=== PATIENT | female | born 1995 | race Caucasian/White ===

== ENCOUNTER 2016-08-21 20:59 | Emergency (ER) | payer MEDICAID, OTHER ==
[~2016-08-21] VITALS: Ht 165.1 cm; Wt 74.8 kg
--- NOTE | 2016-08-21 23:10 | REPUSA ---
CT of the head Clinical history: Headache. Concussion. Technique: Multiple axial CT images were obtained through the head without administration of contrast . Findings: The ventricles and sulci are symmetric bilaterally. There is no evidence of acute hemorrhag e or infarct. There is no midline shift, mass effect, or extra-axial fluid collection. The osseous st ructures are unremarkable. The visualized paranasal sinuses and mastoid air cells are clear. Impression: Negative study.
[2016-08-21] MEDS ORDERED: NAPR500T PO (23:15)
[2016-08-21 23:22] VITALS: BP 122/72
== END 2016-08-21 23:25 | disposition home or self-care (01) ==
LOC: M ED 22:00
DX: S06.0X0A Concussion without loss of consciousness, initial encounter (principal); W01.198A Fall on same level from slipping, tripping and stumbling with subsequent striking against other object, initial encounter; Y92.410 Unspecified street and highway as the place of occurrence of the external cause; Y93.89 Activity, other specified; Y99.9 Unspecified external cause status

== ENCOUNTER 2016-12-21 04:41 | Inpatient (IN) | payer OTHER ==
[~2016-12-21] VITALS: Ht 165.1 cm; Wt 70.1 kg
[~2016-12-21 04:41] MED LIST: NAPR500T PO
[2016-12-21 05:23] LABS: MEAN CORPUSCULAR HEMOGLOBIN 32.5 pg (27.0-33.0); MEAN CORPUSCULAR HGB CONC 34.3 g/dl (32.0-36.5); MEAN CORPUSCULAR VOLUME 94.8 fl (80.0-96.0); RED CELL DISTRIBUTION WIDTH 12.3 % (11.5-14.5); WHITE BLOOD COUNT 9.1 K/mm3 (4.0-10.0)
[2016-12-21] MEDS ORDERED: TETANUS/DIPHTHERIA TOX ADSORB ADULT 0.5ML SYR/VIAL (90714) IM ONE (05:30)
[2016-12-21 05:41] LABS: CONTROL LINE HCG INT CTR LINE PRESENT
[2016-12-21 05:55] LABS: METHADONE URINE NEGATIVE (NEGATIVE)
[2016-12-21 06:04] LABS: ALBUMIN 3.8 GM/DL (3.2-5.2); ALBUMIN/GLOBULIN RATIO 1.19 (1.00-1.93); ALKALINE PHOSPHATASE 47 U/L (45-117); ALT/SGPT 14 U/L (12-78); ANION GAP 10 MEQ/L (8-16); AST/SGOT 10 U/L (15-37); BILIRUBIN,DIRECT 0.1 MG/DL (0.0-0.2); BILIRUBIN,TOTAL 0.4 MG/DL (0.2-1.0); BLOOD UREA NITROGEN 10 MG/DL (7-18); CALCIUM LEVEL 8.7 MG/DL (8.5-10.1); CARBON DIOXIDE LEVEL 24 MEQ/L (21-32); CHLORIDE LEVEL 110 MEQ/L (98-107); CREATININE FOR GFR 0.72 MG/DL (0.55-1.02); GLOMERULAR FILTRATION RATE > 60.0 (>60); GLUCOSE, FASTING 91 MG/DL (70-105); POTASSIUM SERUM 4.1 MEQ/L (3.5-5.1); SODIUM LEVEL 144 MEQ/L (136-145)
--- NOTE | 2016-12-21 08:40 | REP ---
Clinical: Trauma. Technique: AP, lateral, bilateral oblique views right hand . Findings: The osseous structures and joint spaces are intact and normal. There is no evidence for acute fracture or dislocation. Surrounding soft tissues are unremarkable. No subcutaneous emphysema or radiodense foreign body. Impression: Normal right hand series . No acute fracture or dislocation. Signed by Tyrell Garner MD 12/21/2016 08:31 A
[2016-12-21] MEDS ORDERED: ACETAMINOPHEN TAB 650MG DOSE (2X325MG) PO ONE (10:30)
[2016-12-21 11:00] VITALS: BP 119/75
--- NOTE | 2016-12-21 15:54 | MHHPEPDOC ---
[facility] History & Physical History and Physical DATE OF ADMISSION: Dec 21, 2016 at 11:00 LEGAL STATUS AT ADMISSION: . CHIEF COMPLAINT: SI, depression HISTORY OF THE PRESENT ILLNESS: Patient is a 21-year-old female, single, domiciled with mother, brother, BF of mother, post acute care registered nurse job at [employer], PPH self harm in HS & f/u short times, no meds, PMH non significant, BIB EMS friend, for SA with cutting under alcohol. Patient reported that she has been feeling depressed recently and yesterday she had Emotional overload, anger & hit self & others, she got into argument with the friend and she also had drank 5-6 beers, which she does daily for 1-2 months. She reported that she broke one of the beer bottle and cut herself with that glass. She reports that she doesn't remember anything else but she was told that she was aggressive to her friend also. She reports having multiple blackouts in past , thinks alcohol 'mallow' her. cocaine use 1-2 months ago for 1-2 yrs , marijuana- 2days ago 7yrs, twice a week. depression- isolating, less energy, dont want to talk, no motivation, less appetite, loss of about 100lbs from drugs as per the patient, some intentional, wt differently, no drugs for guilt, last night wanted to kill self with cutting , thinking about it for a while, passive SI - for about couple of weeks, mood swings but denies lasting longer than a day of happiness, punched wall yesterday , argument with friend, daily w one friend. nervousness but denies panic attacks. suspicious about people talking about her , which might be connected to her use of drugs. She denies any OCD or PTSD symptoms. She also denies any psychotic symptoms including hallucinations or paranoid ideations. She identifies herself as homosexual and reports being comfortable being lesbian, and being female. PAST PSYCHIATRIC HISTORY: Prior Psychiatric Disorder: Psych evaluation at age of 15yo for anger problems & self harm, no meds, no therapy. ALLERGIES: Please see below. FAMILY PSYCHIATRIC HISTORY: maternal aunt- depression & anxiety, multiple admissions, SIB, Medical- diabetes , returning in the family but denies having diabetes for self SOCIAL HISTORY: lesbian for 4months, currently single, SUBSTANCE ABUSE HISTORY: As described in HPI. PAST MEDICAL/SURGICAL HISTORY: 1. Denies. MENTAL STATUS EXAMINATION: 21yo female sitting in the chair, looks appropriate for the stated age, fair hygiene and grooming, normal psychomotor activities, no abnormal movements, cooperative with limited eye contact, speech is soft normal in rate, rhythm, amount and prosody, mood is sad & nervous, affect constricted and mood congruent , thought process is logical and goal directed, suicidal ideas present and denies homicidal ideations, denies hallucinations, no delusions elicited, aaox3 , fair immediate, short term and terminal worker memory, limited insight, judgement and impulse control DIAGNOSES: 1. Depressive disorder, unspecified, rule out major depression, single episode without psychosis. 2.. Alcohol use disorder. Rule out substance-induced mood disorder. ASSESSMENT: Biologically, having family history of psychiatric illnesses shows patient having genetic loading and can be predisposing factor for the patient having no chronic medical illnesses can be protected to but multiple substance use can be perpetuating and precipitating factor Psychologically, having poor. Defense mechanisms and coping skills can be perpetuating and precipitating factor Socially, having limited social support can be perpetuating factor, but having full-time job can be protective PROBLEM LIST: 1. Depression, suicidal ideations and attempt, but cutting self. 2.. Alcohol use, marijuana and cocaine use. INITIAL TREATMENT PLAN: 1. Patient was admitted on a 9.39 2. Complete history was obtained. 3. With patients permission, family will be contacted and database will be expanded. 4. Patients medication regimen will be reviewed and changed accordingly. 5. Patient will be provided with protected environment. 6. Patient will be treated with individual, group, and milieu therapies. 7. Patient will receive supportive psych-education. 8. Discharge planning will commence immediately. 9. Outpatient follow-up treatment will be strongly recommended. 10. The initial treatment plan will focus initially on: * Depression. * Risk for suicide. * Substance abuse. ESTIMATED LENGTH OF STAY: 5-7 DAYS. TIME SPENT COUNSELING AND COORDINATING INITIAL CARE: 45 minutes. Laboratory Data 24H Labs Laboratory Tests 2 12/21/16 05:11: Anion Gap 10, Glomerular Filtration Rate > 60.0, Calcium Level 8.7, Aspartate Amino Transf (AST/SGOT) 10L, Alanine Aminotransferase (ALT/SGPT) 14, Alkaline Phosphatase 47, Total Bilirubin 0.4, Direct Bilirubin 0.1, Total Protein 7.0, Albumin 3.8, Albumin/Globulin Ratio 1.19, Thyroid Stimulating Hormone (TSH) 1.740, Human Chorionic Gonadotropin, Qual NEGATIVE, Salicylates Level 2.5L, Urine Amphetamines Screen NEGATIVE, Urine Benzodiazepines Screen NEGATIVE, Urine Opiates Screen NEGATIVE, Urine Methadone Screen NEGATIVE, Acetaminophen Level < 2.0L, Urine Barbiturates Screen NEGATIVE, Urine Phencyclidine Screen NEGATIVE, Urine Cocaine Metabolite Screen NEGATIVE, Urine Cannabinoids Screen POSITIVEH, Ethyl Alcohol Level 0.083H CBC/BMP Laboratory Tests 12/21/16 05:11 Red Blood Count 4.26, Mean Corpuscular Volume 94.8, Mean Corpuscular Hemoglobin 32.5, Mean Corpuscular Hemoglobin Concent 34.3, Red Cell Distribution Width 12.3 Medications No Active Prescriptions or Reported Meds Allergies Coded Allergies: Penicillins (Verified Allergy, Unknown, hives, 08/21/16) ESTHER العراقي MD Dec 21, 2016 15:54
[2016-12-21] MEDS ORDERED: MOM 30ML SUSPENSION UDC PO PRN (17:30)
[2016-12-21] MEDS ORDERED: LORazepam 2 MG TAB PO PRN (17:30)
[2016-12-21] MEDS ORDERED: MAALOX 30 ML SUSP *UDC PO PRN (17:30)
[2016-12-21] MEDS ORDERED: THIAMINE 100 MG TAB PO ONE (18:00)
[2016-12-21] MEDS: ESCITALOPRAM OXALATE 5MG TABLET (LEXAPRO) PO SCH (22:27)
[2016-12-22 06:30] VITALS: BP 117/56
[2016-12-22] MEDS: NICOTINE 21MG/24HR 1 EA TRANSDERMAL TD SCH (09:06)
[2016-12-22] MEDS: MULTIVITAMINS/MINERALS THERAP 1 TAB PO SCH (09:06)
[2016-12-22] MEDS: FOLIC ACID 1 MG TAB PO SCH (09:06)
[2016-12-22] MEDS: THIAMINE 100 MG TAB PO SCH ×2 (09:06→22:22)
[2016-12-22] MEDS: ACETAMINOPHEN TAB 650MG DOSE (2X325MG) PO PRN ×2 (09:07→17:44)
[2016-12-22 10:57] VITALS: BP 117/56
--- NOTE | 2016-12-22 16:05 | MHIPNPDOC ---
[facility] [place] DATE OF SERVICE: 12/22/16 HISTORY: Reviewed history with patient, she stated that she was "foggy" on events that occurred leading to her hospitalization and that she remembered drinking then being escorted by police officers. Is aware that she cut herself but does not remember exactly why. Reports having been in an argument with one of her friends shortly before the incident. Her primary stressors involve being left alone by her friends due to changing interests. She denies SI today and reports that she is feeling much better and has enjoyed her time at groups while here. VITAL SIGNS: See below. NEW TEST RESULTS: no new labs CURRENT MEDICATIONS: See below. MENTAL STATUS EXAMINATION: Patient is a 21-year old female, who is dressed in [facility] with good hygiene; calm and cooperative with interview, no psychomotor changes noted Speech: Is fluent; normal rate, tone, volume Thought processes including: logical, goal-oriented, coherent Thought content: denies SI/HI, reiteration of previous history, reports having multiple life stressors Description of associations: intact Description of abnormal or psychotic thoughts: denies AVH, no internal preoccupation noted; no paranoid or delusional thoughts elicited Judgment: fair Insight: poor Orientation: x3 Recent and remote memory: intact Attention span and concentration: intact Mood: "pretty good" Affect: euthymic; full range, congruent to stated mood DIAGNOSES: 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 She does not appear to have enough depressive symptoms to qualify for the diagnosis of MDD, however she may be continuing to minimize as this is her first time meeting this interviewer. Patient has a reported history of self-injurious behavior and admits to feeling lonely and seeking attention. She may benefit from supportive therapy in the outpatient setting, particularly DBT or DDP to challenge her world views. MANAGEMENT PLAN: continue current medications; encourage patient to attend groups; will continue to evaluate patient and obtain collateral as appropriate TIME SPENT: 30 minutes. Vital Signs Vital Signs Date Time Temp Pulse Resp B/P (MAP) Pulse Ox O2 Delivery O2 Flow Rate FiO2 12/22/16 10:57 80 117/56 12/22/16 06:30 97.9 16 12/21/16 10:47 97 12/21/16 04:57 Room Air Current Medications Current Medications Acetaminophen (Tylenol Tab) 650 mg Q4HP PRN PO PAIN Last administered on 09:07; Start 12/21/16 at 17:30; Stop 01/20/17 at 17:29 Al Hydrox/Mg Hydrox/Simethicone (Mylanta) 30 ml Q4HP PRN PO HEARTBURN; Start at 17:30; Stop 01/20/17 at 17:29 Escitalopram Oxalate (Lexapro) 5 mg QHS PO Last administered on 12/21/16 22:27 ; Start 12/21/16 at 21:00; Stop 01/20/17 at 20:59 Folic Acid (Folic Acid) 1 mg DAILY PO Last administered on 12/22/16 09:06; Start 12/22/16 at 09:00; Stop 01/21/17 at 08:59 Home Med (Med Rec Complete!) ASDIRECTED XX ; Start 12/21/16 at 08:15; Stop at 08:15; Status DC Lorazepam (Ativan) 2 mg ASDIRECTED PRN PO SEE PROTOCOL; Start 12/21/16 at 17:30 ; Stop 12/28/16 at 17:29 Magnesium Hydroxide (Milk Of Magnesia) 30 ml DAILYPRN PRN PO CONSTIPATION; Start 12/21/16 at 17:30; Stop 01/20/17 at 17:29 Multivitamins (Theragram-M) 1 tab DAILY PO Last administered on 12/22/16 09:06 ; Start 12/22/16 at 09:00; Stop 01/21/17 at 08:59 Nicotine (Nicoderm Cq 21mg) 1 patch DAILY TD Last administered on 12/22/16 09: 06; Start 12/22/16 at 09:00; Stop 01/21/17 at 08:59 Thiamine HCl (Thiamine HCl) 100 mg BID PO Last administered on 12/22/16 09:06; Start 12/22/16 at 09:00; Stop 12/24/16 at 09:01 Allergies Coded Allergies: Penicillins (Verified Allergy, Unknown, hives, 08/21/16) ELIZABETH JETER MD Dec 22, 2016 16:05
[2016-12-22 18:00] VITALS: BP 134/75
[2016-12-22] MEDS: ESCITALOPRAM OXALATE 5MG TABLET (LEXAPRO) PO SCH (22:22)
[2016-12-22 23:03] VITALS: BP 121/78
[2016-12-22 23:06] VITALS: BP 121/78
[2016-12-23 06:32] VITALS: BP 125/63
[2016-12-23] MEDS: NICOTINE 21MG/24HR 1 EA TRANSDERMAL TD SCH (08:39)
[2016-12-23] MEDS: FOLIC ACID 1 MG TAB PO SCH (08:39)
[2016-12-23] MEDS: MULTIVITAMINS/MINERALS THERAP 1 TAB PO SCH (08:39)
[2016-12-23] MEDS: THIAMINE 100 MG TAB PO SCH (08:39)
[2016-12-23] MEDS ORDERED: NICO21PAT TD (10:02)
[2016-12-23] MEDS ORDERED: LEXA1TAB PO (10:02)
[2016-12-23] MEDS ORDERED: FOLI1TAB4 PO (10:02)
[2016-12-23] MEDS ORDERED: THIA100TA PO (10:02)
[2016-12-23] MEDS ORDERED: VITMTA PO (10:02)
--- NOTE | 2016-12-23 15:19 | MHDSPDOC ---
[facility] Discharge Summary Discharge Summary DATE OF ADMISSION: Dec 21, 2016 at 11:00 DATE OF DISCHARGE: Dec 23, 2016 at 12:15 DISCHARGE DIAGNOSES: 1. 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 Unspecified Mood Disorder, r/o MDD REASON FOR ADMISSION: CHIEF COMPLAINT: SI, depression HISTORY OF THE PRESENT ILLNESS: Patient is a 21-year-old female, single, domiciled with mother, brother, BF of mother, full time staff interpreter job at [email or web address], PPH self harm in HS & f/u short times, no medications, PMH non significant, BIB EMS friend, for SA with cutting under alcohol. Patient reported that she has been feeling depressed recently and yesterday she had Emotional overload, anger & hit self & others, she got into argument with the friend and she also had drank 5-6 beers, which she does daily for 1-2 months. She reported that she broke one of the beer bottle and cut herself with that glass. She reports that she doesn't remember anything else but she was told that she was aggressive to her friend also. She reports having multiple blackouts in past , thinks alcohol 'mellows' her. cocaine use 1-2 months ago for 1-2 yrs , marijuana- 2days ago 7yrs, twice a week. depression- isolating, less energy, don't want to talk, no motivation, less appetite, loss of about 100lbs from drugs as per the patient, some intentional, wt differently, no drugs for guilt, last night wanted to kill self with cutting , thinking about it for a while, passive SI - for about couple of weeks, mood swings but denies lasting longer than a day of happiness, punched wall yesterday , argument with friend, daily w one friend. nervousness but denies panic attacks. suspicious about people talking about her , which might be connected to her use of drugs. She denies any OCD or PTSD symptoms. She also denies any psychotic symptoms including hallucinations or paranoid ideations. She identifies herself as homosexual and reports being comfortable being lesbian, and being female. CONSULTANTS INVOLVED: None TREATMENT AND PROGRESS ON THE UNIT : Patient had a good response to medications , kept a pleasant and cooperative attitude, she did attend groups. Patient was evaluated and she admitted she had a problem with alcohol and that she had used different drugs previously. Recently, she admitted to using alcohol and marijuana, she said she realizes is not good for her to continue to socialize with the friend with whom she got into a fight because whenever they are together, they fight and this has been going on for a while now. She has admitted she feels lonely and at times she feels empty. She has a history of self injurious behavior, that seem to fit the Borderline Personality traits. She doesn't fulfill the criteria for major Depressive Disorder, so, it seems to be that she doesn't have enough coping skills and when she's under stress she punches crenshaw or cuts herself. Substance abuse is a problem for her, she couldn' t remember exactly what had happened prior to her admission, except "bits and pieces", like being in the Police car and then, walking into the ED. Her mother has told [employer] that if patient didn't show up tomorrow at work ([employer]), she would loose her job. Mother said she worries about her because of her alcohol consumption but she felt comfortable by having her back home. Patient received Lexapro 10 mgs. PO QD and Multivitamins 1 cap PO QD, Folic Acid 1 mg. PO QD, Thiamine 100 mgs PO BID and a Nicotine patch 1 applied daily. HOSPITAL COURSE: As above DISCHARGE ASSESSMENT: Patient was not in danger to self or others. Patient was observed around the Unit and she always was calm, pleasant and cooperative. According to staff and social workers she engaged in treatment, attended group and never manifested suicidal or homicidal ideation, did not engage in self injurious behavior and was motivated for treatment. The meeting between her mother, herself and addiction social worker wnet well, her mood and affect were reported as bright and she didn't have any signs of psychosis. MENTAL STATUS EXAMINATION ON DISCHARGE: The patient was not seen by this author at the time of her discharge but she was reported to be happy, with brighter mood and affect, goal oriented, with no suicidal thoughts, not homicidal thoughts and not psychotic by staff members. This senior grant writer intended to meet with the patient but when I looked for her she had already left. Staff members reported her as being stable and TW had seen her previously walking in the hallways, looking happy and stating she felt fine when TW asked her how she felt. Patient is a 21-year old female, who is alert, cooperative, dressed in personal clothes. Speech is coherent Language skills are fair. Thought processes including: Intact. Thought content: coherent. Abstract reasoning, and computation: Fair. Description of associations: Good. Description of abnormal or psychotic thoughts: Not present Judgment: Improved Insight: Improved Orientation to Oriented x 3. Recent and remote memory: Good Attention span and concentration: Fair Language: Normal Fund of knowledge: Fair Mood: Euthymic Affect: Congruent with mood MEDICATIONS ON DISCHARGE: - Lexapro 10 mgs PO QD for anxiety/depression. - Folic acid 1 mg PO QD for alcohol withdrawals. - Multivitamins 1 cap PO QD for alcohol withdrawals -Thiamine 100 mgs. PO BID for alcohol withdrawals - Nicotine patch 1 QD PLAN/FOLLOWUP ARRANGEMENTS: * Mental Health Appt 1 * [facility] * Therapist MALLIKA * Date Dec 25, 2016 * Time 11:00 * Address of Clinic or Practice [address] [place] [address] * * Chemical Dependency Appt1 * Crisis Support 09/11 [facility] * Therapist CHIKIS * Date Dec 24, 2016 * Time 07:30 * Address of Clinic or Practice [address] [place] [address] * * Additional information Wednesday, Wed & 730-1030 & 1230-230 Tuesdays 830-1030 The amount of time spent in the coordination of care for this patient was approximately 20 minutes. Vital Signs/I&Os Vital Signs Date Time Temp Pulse Resp B/P (MAP) Pulse Ox O2 Delivery O2 Flow Rate FiO2 12/23/16 06:32 99.3 62 16 125/63 (83) Room Air 12/21/16 10:47 97 Medications Scheduled Escitalopram Oxalate (Lexapro) 10 Mg Tab, 10 MG PO DAILY for DEPRESSION, #10 Folic Acid (Folic Acid) 1 Mg Tab, 1 MG PO DAILY for WITHDRAWAL SYMPTOMS, #10 Multivitamins *[facility] STOCKED* (Thera M Plus *[facility] STOCKED*) 1 Tab Tab, 1 TAB PO DAILY for WITHDRAWAL SYMPTOMS, #10 Nicotine (Nicotine Transdermal Syst) 21 Mg/24 Hr Dis, 1 PATCH TD DAILY for NICOTINE WITHDRAWAL, #7 Thiamine Hcl (Thiamine Hcl) 100 Mg Tab, 100 MG PO BID for WITHDRAWAL SYMPTOMS, # 14 Allergies Coded Allergies: Penicillins (Verified Allergy, Unknown, hives, 08/21/16) ÁLVARO ESPINOZA MD Dec 23, 2016 15:19
--- NOTE | 2016-12-23 21:18 | HPE ---
DATE OF ADMISSION: 12/21/2016 HISTORY OF PRESENT ILLNESS: Please refer to psychiatric history and evaluation for further details on this admission. This examination and history is intended for medical issues, which may need treatment, followup or consult on this 21-year-old female. ALLERGIES: PENICILLIN. PRIMARY CARE PROVIDER: None. SOCIAL HISTORY: She is single, lives with her mother, brother, and mother's boyfriend. Ethyl alcohol (EtOH) daily 2-3 beers. Smokes; she utilizes one-half to one can of dip per week. Recreational drug use marijuana and cocaine. PAST MEDICAL HISTORY: Negative. PAST SURGICAL HISTORY: Negative. HOME MEDICATIONS: None. LABORATORY DATA: X-ray of the right hand was negative. OBJECTIVE: VITAL SIGNS: Stable. GENERAL: Patient is alert and oriented times three. HEENT: Pupils equal and react to light. Extraocular movement intact. Sclerae clear. Conjunctivae normal. No facial asymmetry. Has some slight bruising on her right side of her eyelid. CHEST: Clear to auscultation without wheeze or retraction. HEART: Regular without murmur, rub or gallop. ABDOMEN: Benign. Bowel sounds are positive. GENITOURINARY/RECTAL: Not done. EXTREMITIES: Show a well-approximated laceration left inner forearm. Sutures intact. Dry sterile dressing applied. Hand grasps equal. Peripheral pulses equal and palpable bilaterally. SKIN: Warm and dry. IMPRESSION: Left forearm. Monitor for signs of infection. Ganglion cyst. Refer as needed.
== END 2016-12-23 12:15 | disposition home or self-care (01) | DRG 752 ==
LOC: M ED 04:41 → M PSY 11:00
PROVIDERS: ADMIT Psychiatry & Neurology Psychiatry; ATTEND Psychiatry & Neurology Psychiatry
DX: F60.3 Borderline personality disorder (principal); F39 Unspecified mood [affective] disorder; Z79.899 Other long term (current) drug therapy; Z88.0 Allergy status to penicillin; F10.10 Alcohol abuse, uncomplicated; F17.220 Nicotine dependence, chewing tobacco, uncomplicated; M67.432 Ganglion, left wrist

== ENCOUNTER 2017-01-01 01:34 | Emergency (ER) | payer OTHER ==
[~2017-01-01] VITALS: Ht 165.1 cm; Wt 68.0 kg
[~2017-01-01 01:34] MED LIST changes: +FOLI1TAB4 PO; +LEXA1TAB PO; +NICO21PAT TD; +THIA100TA PO; +VITMTA PO
[2017-01-01 02:00] VITALS: BP 133/83
[2017-01-02] MEDS ORDERED: IBUP80TA PO (14:46)
[2017-01-02] MEDS ORDERED: ZOFR4TAB3 PO (14:46)
[2017-01-02] MEDS ORDERED: BACT800T5 PO (14:46)
== END 2017-01-01 03:48 | disposition left against medical advice (07) ==
LOC: M ED 01:34
DX: Z53.21 Procedure and treatment not carried out due to patient leaving prior to being seen by health care provider (principal)

== ENCOUNTER 2017-01-02 13:54 | Emergency (ER) | payer OTHER ==
[~2017-01-02] VITALS: Ht 165.1 cm; Wt 68.2 kg
[2017-01-02 13:55] VITALS: BP 129/74
[2017-01-02] MEDS ORDERED: ONDANSETRON 4 MG ORAL DISINTEGRATING TAB (S0181) PO ONE (14:45)
[2017-01-02] MEDS ORDERED: IBUP80TA PO (14:46)
[2017-01-02] MEDS ORDERED: ZOFR4TAB3 PO (14:46)
[2017-01-02] MEDS ORDERED: BACT800T5 PO (14:46)
== END 2017-01-02 15:04 | disposition home or self-care (01) ==
LOC: M ED 13:54
DX: Z48.02 Encounter for removal of sutures (principal); K08.89 Other specified disorders of teeth and supporting structures; K04.7 Periapical abscess without sinus; R11.0 Nausea; F17.210 Nicotine dependence, cigarettes, uncomplicated; F41.9 Anxiety disorder, unspecified; Z79.899 Other long term (current) drug therapy

== ENCOUNTER 2017-01-05 21:25 | Emergency (ER) | payer OTHER ==
[~2017-01-05] VITALS: Ht 165.1 cm; Wt 68.2 kg
[~2017-01-05 21:25] MED LIST changes: +BACT800T5 PO; +IBUP80TA PO; +ZOFR4TAB3 PO
[2017-01-06] VITALS: BP 116/77
== END 2017-01-06 00:01 | disposition home or self-care (01) ==
LOC: M ED 21:25
DX: S09.90XA Unspecified injury of head, initial encounter (principal); W01.10XA Fall on same level from slipping, tripping and stumbling with subsequent striking against unspecified object, initial encounter; Y92.091 Bathroom in other non-institutional residence as the place of occurrence of the external cause; Y93.9 Activity, unspecified; Y99.9 Unspecified external cause status; F17.200 Nicotine dependence, unspecified, uncomplicated; Z79.899 Other long term (current) drug therapy; Z88.0 Allergy status to penicillin

== ENCOUNTER → 2017-05-24 | Outpatient (CLI) | payer OTHER ==
[2017-05-24 17:09] LABS: BASO # 0.1 10^3/uL (0.0-0.2); BASO % 0.8 % (0.0-1.0); EOS # 0.2 10^3/uL (0.0-0.50); EOS % 2.2 % (0.0-3.0); HEMATOCRIT 42.4 % (36.0-47.0); HEMOGLOBIN 14.1 g/dl (12.0-16.0); IMMATURE GRANULOCYTE % 0.4 % (0-0); LYMPH # 2.5 10^3/uL (1.5-6.5); LYMPH % 26.2 % (24.0-44.0); MEAN CORPUSCULAR HEMOGLOBIN 31.9 pg (27.0-33.0); MEAN CORPUSCULAR HGB CONC 33.3 g/dl (32.0-36.5); MEAN CORPUSCULAR VOLUME 95.9 fl (80.0-96.0); MONO # 0.6 10^3/uL (0.0-0.8); MONO % 6.3 % (0.0-5.0); NEUTROPHILS # 6.2 10^3/uL (1.8-7.7); NEUTROPHILS % 64.1 % (36.0-66.0); PLATELET COUNT, AUTOMATED 238 10^3/uL (150-450); RED BLOOD COUNT 4.42 10^6/uL (4.00-5.40); RED CELL DISTRIBUTION WIDTH 12.3 % (11.5-14.5); WHITE BLOOD COUNT 9.6 10^3/uL (4.0-10.0)
[2017-05-24 17:21] LABS: ALBUMIN/GLOBULIN RATIO 1.25 (1.00-1.93); ALKALINE PHOSPHATASE 59 U/L (45-117); ALT/SGPT 14 U/L (12-78); ANION GAP 5 MEQ/L (8-16); AST/SGOT 7 U/L (7-37); BILIRUBIN,TOTAL 0.6 MG/DL (0.2-1.0); BLOOD UREA NITROGEN 10 MG/DL (7-18); CALCIUM LEVEL 8.8 MG/DL (8.5-10.1); CARBON DIOXIDE LEVEL 27 MEQ/L (21-32); CHLORIDE LEVEL 110 MEQ/L (98-107); CHOLESTEROL LEVEL 152 MG/DL (<200); CHOLESTEROL RISK RATIO 2.412 (<5); CREATININE FOR GFR 0.57 MG/DL (0.55-1.30); FREE T4 0.85 NG/DL (0.76-1.46); GLOMERULAR FILTRATION RATE > 60.0 (>60); GLUCOSE, FASTING 81 MG/DL (70-100); HDL CHOLESTEROL 63 MG/DL (>40); LDL CHOLESTEROL 76.4 MG/DL (<100); NON-HDL-C 89 MG/DL; POTASSIUM SERUM 4.2 MEQ/L (3.5-5.1); SODIUM LEVEL 142 MEQ/L (136-145); THYROID STIMULATING HORMONE 0.831 uIU/ML (0.358-3.740); TOTAL PROTEIN 7.2 GM/DL (6.4-8.2); TRIGLYCERIDES LEVEL 63 MG/DL (<150)
== END ==
LOC: M WUC 14:54
DX: Z00.00 Encounter for general adult medical examination without abnormal findings (principal); F41.8 Other specified anxiety disorders; Z13.220 Encounter for screening for lipoid disorders
CPT/HCPCS: 84443

== ENCOUNTER → 2018-07-15 | Outpatient (CLI) | payer OTHER ==
[~2018-07-15] MED LIST changes: +FOLI1TAB11 PO; -FOLI1TAB4 PO; +NAPR-50 PO; -NAPR500T PO; +ZOFR4TAB14 PO; -ZOFR4TAB3 PO
[2018-07-15 14:00] LABS: BASO # 0.1 10^3/uL (0.0-0.2); BASO % 0.7 % (0.0-1.0); EOS # 0.2 10^3/uL (0.0-0.50); EOS % 1.7 % (0.0-3.0); HEMATOCRIT 45.1 % (36.0-47.0); HEMOGLOBIN 15.2 g/dl (12.0-15.5); LYMPH % 16.6 % (24.0-44.0); MEAN CORPUSCULAR HEMOGLOBIN 31.7 pg (27.0-33.0); MEAN CORPUSCULAR HGB CONC 33.7 g/dl (32.0-36.5); MEAN CORPUSCULAR VOLUME 94.2 fl (80.0-96.0); MONO # 0.8 10^3/uL (0.0-0.8); MONO % 6.5 % (0.0-5.0); NEUTROPHILS # 9.1 10^3/uL (1.8-7.7); NEUTROPHILS % 73.8 % (36.0-66.0); PLATELET COUNT, AUTOMATED 241 10^3/uL (150-450); RED BLOOD COUNT 4.79 10^6/uL (4.00-5.40); WHITE BLOOD COUNT 12.3 10^3/uL (4.0-10.0)
[2018-07-15 14:16] LABS: HEMOGLOBIN A1c 5.2 %
[2018-07-15 14:32] LABS: ALBUMIN 3.7 GM/DL (3.2-5.2); ALT/SGPT 33 U/L (12-78); BILIRUBIN,DIRECT < 0.1 MG/DL (0.0-0.2); BILIRUBIN,TOTAL 0.3 MG/DL (0.2-1.0); BLOOD UREA NITROGEN 9 MG/DL (7-18); CALCIUM LEVEL 8.7 MG/DL (8.5-10.1); CARBON DIOXIDE LEVEL 25 MEQ/L (21-32); CHLORIDE LEVEL 109 MEQ/L (98-107); CHOLESTEROL LEVEL 173 MG/DL (<200); CHOLESTEROL RISK RATIO 4.023 (<5); CREATININE FOR GFR 0.62 MG/DL (0.55-1.30); GLOMERULAR FILTRATION RATE > 60.0 (>60); GLUCOSE, FASTING 79 MG/DL (70-100); HDL CHOLESTEROL 43 MG/DL (>40); LDL CHOLESTEROL 89 MG/DL (<100); NON-HDL-C 130 MG/DL; PHOSPHORUS LEVEL 3.1 MG/DL (2.5-4.9); POTASSIUM SERUM 4.1 MEQ/L (3.5-5.1); SODIUM LEVEL 142 MEQ/L (136-145); TOTAL 25(OH) VITAMIN D 12.4 NG/ML (30.0-100.0); TRIGLYCERIDES LEVEL 204 MG/DL (<150)
--- NOTE | 2018-07-16 10:12 | ECGEPIP ---
Stationary ECG Study [facility] Test Date: 2018-07-15 Pat Name: KATHY GAMBOA Department: Room: - Gender: F Automatic Outsole Cutter: QUINTIN : 1995 Requested By: Jody ECHOLS Order Number: [id number] Reading MD: Elisabet Hernandez Measurements Intervals [place] Rate: 79 P: 61 MN: 151 QRS: 63 QRSD: 90 T: 33 QT: 366 QTc: 420 Interpretive Statements SINUS RHYTHM RIGHT VENTRICULAR CONDUCTION DELAY NO PRIOR Electronically Signed On 07-16-2018 10:11:58 EDT by Elisabet Hernandez
== END ==
LOC: M LAB 12:46
PROVIDERS: ATTEND Registered Nurse
DX: F34.1 Dysthymic disorder (principal)

== ENCOUNTER 2019-01-20 17:16 | Emergency (ER) | payer OTHER ==
[~2019-01-20] VITALS: Ht 165.1 cm; Wt 114.9 kg
[~2019-01-20 17:16] MED LIST changes: -NAPR-50 PO; +NAPR-837 PO
[2019-01-20 17:17] VITALS: BP 161/78
== END 2019-01-20 18:39 | disposition home or self-care (01) ==
LOC: M ED 17:16
DX: T58.91XA Toxic effect of carbon monoxide from unspecified source, accidental (unintentional), initial encounter (principal); Z77.098 Contact with and (suspected) exposure to other hazardous, chiefly nonmedicinal, chemicals; F33.9 Major depressive disorder, recurrent, unspecified; F41.9 Anxiety disorder, unspecified; F17.210 Nicotine dependence, cigarettes, uncomplicated; Z88.0 Allergy status to penicillin; Z79.899 Other long term (current) drug therapy